=== PATIENT | female | born 1945 | race African-American/Black ===

== ENCOUNTER 2024-04-11 11:51 | Emergency (ER) | payer MEDICARE, MEDICAID ==
[~2024-04-11] VITALS: Ht 152.4 cm; Wt 70.0 kg
[2024-04-11 11:53] VITALS: PULSE 64; O2SAT 98
[2024-04-11 13:03] VITALS: BP 140/64; RESP 16; TEMP 98.5
[2024-04-11] MEDS: ACETAMINOPHEN 325MG TABLET PO ONE (13:03)
[2024-04-11] MEDS: LIDOCAINE 5% PATCH TOP SCH (13:03)
[2024-04-11] MEDS ORDERED: LIDO700A15 TP (14:03)
[2024-04-11] MEDS ORDERED: NAPR220C61 MT (14:03)
== END 2024-04-11 14:25 | disposition home or self-care (01) ==
LOC: ER 11:51
DX: S70.01XA Contusion of right hip, initial encounter (principal); E11.40 Type 2 diabetes mellitus with diabetic neuropathy, unspecified; I10 Essential (primary) hypertension; G89.11 Acute pain due to trauma; W19.XXXA Unspecified fall, initial encounter; Y93.89 Activity, other specified; Y92.89 Other specified places as the place of occurrence of the external cause; Y99.8 Other external cause status
CPT/HCPCS: 72192; 99284